=== PATIENT | female | born 1990 | race Caucasian/White ===

== ENCOUNTER 2025-02-10 18:12 | Emergency (ER) | payer OTHER ==
[2025-02-10] MEDS: Dexamethasone 4 MG Tab PO ONE (22:32)
[2025-02-10 22:39] VITALS: BP 132/82; PULSE 66
== END 2025-02-10 22:38 | disposition home or self-care (01) ==
LOC: MW.ED 18:12
DX: O99.891 Other specified diseases and conditions complicating pregnancy (principal); R04.2 Hemoptysis; Z79.899 Other long term (current) drug therapy; Z75.8 Other problems related to medical facilities and other health care; Z3A.10 10 weeks gestation of pregnancy
CPT/HCPCS: 71046; 71046-26; 99283; 99284

== ENCOUNTER 2025-08-16 15:50 | Inpatient (IN) | payer OTHER, BC ==
[2025-08-16 16:31] LABS: BASOPHILS ABSOLUTE AUTO 0.02 K/uL (0.00-0.20); BASOPHILS PERCENT AUTO 0.2 % (0.0-1.0); EOSINOPHILS ABSOLUTE AUTO 0.08 K/uL (0.00-0.45); EOSINOPHILS PERCENT AUTO 0.8 % (0.0-6.0); IMMATURE GRAN ABSOLUTE AUTO 0.11 K/uL (0.00-0.05); IMMATURE GRAN PERCENT AUTO 1.1 % (0.0-0.4); LYMPHOCYTES ABSOLUTE AUTO 2.24 K/uL (1.00-4.80); LYMPHOCYTES PERCENT AUTO 21.5 % (24.0-44.0); MEAN PLATELET VOLUME 9.5 fL (9.4-12.3); MONOCYTES ABSOLUTE AUTO 0.84 K/uL (0.00-0.80); MONOCYTES PERCENT AUTO 8.1 % (0.0-8.0); NEUTROPHILS ABSOLUTE AUTO 7.13 K/uL (1.80-7.70); NEUTROPHILS PERCENT AUTO 68.3 % (41.0-71.0); NRBC ABSOLUTE 0.03 K/uL (0.00-0.02); NRBC PERCENT 0.3 /100WBC (0.0-0.2); PLATELET COUNT,PLT 208 K/uL (150-400); RED BLOOD CELL COUNT 3.07 M/uL (4.10-5.30); WHITE BLOOD CELL COUNT,WBC 10.42 K/uL (3.9-11.3)
[2025-08-16 16:59] LABS: A/G RATIO 0.6 (0.9-1.6); ALANINE AMINOTRANSFERASE,ALT 24 IU/L (14-63); ASPARTATE AMNIOTRANSFERASE,AST 23 IU/L (15-37); BILIRUBIN TOTAL 0.3 mg/dL (0.2-1.0); BLOOD UREA NITROGEN,BUN 13 mg/dL (7.0-18.0); CARBON DIOXIDE,CO2 23.4 mmol/L (21.0-32.0); CHLORIDE,CL 103 mmol/L (98-107); CREATININE 0.7 mg/dL (0.6-1.0); GLUCOSE RANDOM 70 mg/dL (74-106); POTASSIUM,K 4.0 mmol/L (3.5-5.1); PROTEIN TOTAL,TP 6.6 g/dL (6.4-8.2); SODIUM,NA 133 mmol/L (136-145)
[2025-08-16 17:02] LABS: ESTIMATED GFR 115 mL/min (>60)
[2025-08-16] MEDS ORDERED: Calcium Gluconate 10% 1 GM/10 ML SDV IV PRN (17:10)
[2025-08-16] MEDS ORDERED: Sodium Chloride 0.9% 10 ML Syringe FLUSH PRN (17:10)
[2025-08-16] MEDS ORDERED: Sodium Chloride 0.9% 2.5 ML Syringe FLUSH PRN (17:10)
[2025-08-16] MEDS: Magnesium Sulfate 2 GM/50 mL 2 GM in Premix Bag 1 BAG IV ONE (18:57)
[2025-08-16] MEDS: Lactated Ringers 1,000 ML IV SCH (18:58)
[2025-08-16] MEDS: Labetalol 100 MG/20 ML MDV IVPUSH PRN (19:06)
[2025-08-16] MEDS: Magnesium Sulfate 4 GM/100 mL 4 GM in Premix Bag 1 BAG IV ONE (19:10)
[2025-08-16] MEDS: Magnesium Sulfate 20 GM/500mL 20 GM/500 ML BAG IV SCH (19:26)
[2025-08-16] MEDS ORDERED: Terbutaline 1 MG/ML SDV SUBCUT PRN (19:52)
[2025-08-16] MEDS ORDERED: ePHEDrine 50 MG/ML SDV IVPUSH PRN (19:58)
[2025-08-16] MEDS ORDERED: dexmedeTOMIDine HCl 200 MCG/2 ML SDV EPIDUR SCH (20:00)
[2025-08-16] MEDS: Misoprostol 25 MCG (1/4 of 100 MCG) Tab VAG PRN (20:18)
[2025-08-17] MEDS: Oxytocin/0.9 % Sodium Chloride 30 UNIT/500 ML BAG IV SCH (04:29)
[2025-08-17] MEDS: Butorphanol 1 MG/ML SDV IVPUSH PRN (04:29)
[2025-08-17] MEDS ORDERED: Carboprost Tromethamine 250 MCG/1 mL Vial IM PRN (04:45)
[2025-08-17] MEDS ORDERED: Oxytocin/0.9 % Sodium Chloride 30 UNIT/500 ML BAG IV SCH (04:45)
[2025-08-17] MEDS ORDERED: Water For Irrigation,Sterile 1,000 ML Container IRR PRN (04:45)
[2025-08-17] MEDS: Ropivacaine HCl/PF 400 MG in Premix Bag 1 BAG EPIDUR SCH (07:53)
[2025-08-17] MEDS: Ondansetron 4 MG/2 ML SDV IVPUSH PRN (08:58)
[2025-08-17] MEDS: Ondansetron 4 MG/2 ML SDV ONE (11:10)
[2025-08-17] MEDS: Promethazine 25 MG/ML SDV IM PRN (11:20)
[2025-08-17] MEDS ORDERED: Lanolin 100% Cream 7 GM Tube TOP PRN (13:45)
[2025-08-17 13:57] LABS: PH,UMBILICAL ARTERIAL 7.2 (7.18-7.38); PH,UMBILICAL VENOUS 7.25 (7.25-7.45)
[2025-08-17] MEDS: Witch Hazel Medicated Pads 40/Jar TOP PRN (18:17)
[2025-08-17] MEDS: Benzocaine/Menthol 20%-0.5% Spray 78 GM Cannister TOP PRN (18:18)
[2025-08-17] MEDS: Lactated Ringers 1,000 ML IV SCH (22:32)
[2025-08-18] MEDS ORDERED: NIFEdipine 30 MG Tab.ER ONE (05:17)
[2025-08-18] MEDS: NIFEdipine 30 MG Tab.ER PO SCH (05:21)
[2025-08-18 05:44] LABS: BASOPHILS ABSOLUTE AUTO 0.02 K/uL (0.00-0.20); BASOPHILS PERCENT AUTO 0.2 % (0.0-1.0); EOSINOPHILS ABSOLUTE AUTO 0.08 K/uL (0.00-0.45); EOSINOPHILS PERCENT AUTO 0.7 % (0.0-6.0); IMMATURE GRAN ABSOLUTE AUTO 0.07 K/uL (0.00-0.05); IMMATURE GRAN PERCENT AUTO 0.6 % (0.0-0.4); LYMPHOCYTES ABSOLUTE AUTO 2.30 K/uL (1.00-4.80); LYMPHOCYTES PERCENT AUTO 19.4 % (24.0-44.0); MEAN PLATELET VOLUME 9.3 fL (9.4-12.3); MONOCYTES ABSOLUTE AUTO 0.85 K/uL (0.00-0.80); MONOCYTES PERCENT AUTO 7.2 % (0.0-8.0); NEUTROPHILS ABSOLUTE AUTO 8.52 K/uL (1.80-7.70); NEUTROPHILS PERCENT AUTO 71.9 % (41.0-71.0); NRBC ABSOLUTE 0.00 K/uL (0.00-0.02); NRBC PERCENT 0.0 /100WBC (0.0-0.2); PLATELET COUNT,PLT 181 K/uL (150-400); RED BLOOD CELL COUNT 2.88 M/uL (4.10-5.30); WHITE BLOOD CELL COUNT,WBC 11.84 K/uL (3.9-11.3)
[2025-08-18 06:12] LABS: A/G RATIO 0.6 (0.9-1.6); ALANINE AMINOTRANSFERASE,ALT 22.0 IU/L (14-63); ASPARTATE AMNIOTRANSFERASE,AST 22.0 IU/L (15-37); BILIRUBIN TOTAL 0.3 mg/dL (0.2-1.0); BLOOD UREA NITROGEN,BUN 12.0 mg/dL (7.0-18.0); CARBON DIOXIDE,CO2 21.9 mmol/L (21.0-32.0); CHLORIDE,CL 106.0 mmol/L (98-107); CREATININE 0.8 mg/dL (0.6-1.0); EST CRCL DRUG DOSING (CG) 80.39 mL/min; GLUCOSE RANDOM 100.0 mg/dL (74-106); POTASSIUM,K 4.1 mmol/L (3.5-5.1); PROTEIN TOTAL,TP 5.8 g/dL (6.4-8.2); SODIUM,NA 137.0 mmol/L (136-145)
[2025-08-18 06:15] LABS: ESTIMATED GFR 98.0 mL/min (>60)
[2025-08-18] MEDS ORDERED: NIFEdipine 30 MG Tab.ER PO SCH (09:00)
[2025-08-18] MEDS: Sodium Ferric Gluconate Cmplex 125 MG in Sodium Chloride 0.9% 100 ML IV SCH (09:17)
[2025-08-19 12:28] VITALS: BP 136/82; PULSE 81
== END 2025-08-19 12:08 | disposition home or self-care (01) | DRG 806 ==
LOC: MW.OBCHECK 15:50 → MW.OB 15:50 → MW.OBCHECK 19:48 → OBSVTOIN 08-17 13:22 → MW.OB 08-18 01:28
PROVIDERS: ADMIT Obstetrics & Gynecology; ATTEND Obstetrics & Gynecology
PROC: 10907ZC Drainage of Amniotic Fluid, Therapeutic from Products of Conception, Via Natural or Artificial Opening (ICD-10-PCS; principal; 2025-08-17)
PROC: 10E0XZZ Delivery of Products of Conception, External Approach (ICD-10-PCS; 2025-08-17)
PROC: 4A1HXCZ Monitoring of Products of Conception, Cardiac Rate, External Approach (ICD-10-PCS; 2025-08-17)
PROC: 3E0DXGC Introduction of Other Therapeutic Substance into Mouth and Pharynx, External Approach (ICD-10-PCS; 2025-08-17)
PROC: 3E0R3BZ Introduction of Anesthetic Agent into Spinal Canal, Percutaneous Approach (ICD-10-PCS; 2025-08-17)
PROC: 00HU33Z Insertion of Infusion Device into Spinal Canal, Percutaneous Approach (ICD-10-PCS; 2025-08-17)
DX: O14.14 Severe pre-eclampsia complicating childbirth (principal); D62 Acute posthemorrhagic anemia; O14.13 Severe pre-eclampsia, third trimester; O99.824 Streptococcus B carrier state complicating childbirth; O99.213 Obesity complicating pregnancy, third trimester; O99.03 Anemia complicating the puerperium; O99.214 Obesity complicating childbirth; E66.812 Obesity, class 2; O99.820 Streptococcus B carrier state complicating pregnancy; O80 Encounter for full-term uncomplicated delivery; Z37.0 Single live birth; Z68.37 Body mass index [BMI] 37.0-37.9, adult; Z3A.37 37 weeks gestation of pregnancy
CPT/HCPCS: 36415 ×2; 51702; 59025; 80053; 82803 ×2; 83735 ×3; 84550; 85025; 86850; 86900; 86901; A9270 ×6; J0290 ×4; J0595; J1920; J2405; J2550; J2590; J2795; J3475 ×4; J7120 ×2; 01967; 59409; 85014; 85018; J2916